=== PATIENT | male | born 1980 | race Caucasian/White ===

== ENCOUNTER 2023-09-06 10:10 | Outpatient (AMB) | payer OTHER, SELFPAY ==
[2023-09-06 12:30] VITALS: PULSE 72; TEMP 36.6; O2SAT 98; BMI 20.8
--- NOTE | 2023-09-06 12:30 | AM.OFFWIN_ITS ---
Intake Vital Signs 09/06/23 12:30 Height 5 ft 5 in Weight 125 lb BMI 20.8 Pulse 72 Pulse Source Pulse Oximeter Temp 97.9 F Temp Source Oral Pulse Oximetry (%) 98 Oxygen Delivery Method Room Air Intake Visit Reasons: [employer]-Lt ear [phone] Intake Note: Patient is here with left ear blockage, now goo is coming out of it. Patient Tobacco Use Status: Current everyday Tobacco user Allergies No Known Allergies Allergy (Verified 09/06/23 12:32) Do you need a note to return to daycare/school/sports/work: No HPI HPI Comments History of Present Illness Details This is a 43-year-old male who presents to the office today for sick visit. Patient complaining of left ear pain, left ear fullness, and left ear drainage. Patient states he went to bed last night just fine. He woke up around 5:00 a.m. this morning with fullness in his left ear any notice some water draining out of it. He reports some mild nasal congestion. He denies any fevers or chills. Review of Systems Const All systems reviewed & are unremarkable except as noted in HPI and below Reports no additional complaints Eyes Reports no additional complaints ENT Reports no additional complaints Card Reports no additional complaints Resp Reports no additional complaints GI Reports no additional complaints Reports no additional complaints Musc Reports no additional complaints Skin/Breast Reports system reviewed and no additional complaints, except as documented Neuro Reports no additional complaints Psych Reports no additional complaints Endo Reports no additional complaints [place]/Lymph Reports no additional complaints Aller/Immun Reports no additional complaints Physical Exam Vital Signs: BMI result Body Mass Index 20.8 Const Other: Vital signs reviewed. Constitutional: Non-toxic appearing. No acute distress. Well-developed and well-nourished. HEENT: Normocephalic and atraumatic. Erythema and edema of the right external auditory canal, tympanic membrane without erythema, edema, or bulging. Moist mucous membranes. No pharyngeal erythema or exudates. Skin: Warm and dry. No rashes or lesions noted. Neck: Full and painless range of motion. No cervical lymphadenopathy. Cardio: Regular rate. No lower extremity edema. No JVD. Pulmonary: No respiratory distress. No accessory muscle usage. Gastrointestinal: Soft, nontender, and nondistended in all 4 quadrants. Musculoskeletal: Normal range of motion in joints throughout the body. No deformity or other signs of injury. Neuro: Alert and oriented x4. Cranial nerves 2-12 grossly intact. No focal deficits appreciated. Psych: Normal mood and affect. Assessment & Plan Assessment & Plan (1) Acute otitis externa of left ear: Code(s): H60.502 - Unspecified acute noninfective otitis externa, left ear Qualifiers: Otitis externa type: swimmer's ear Qualified Code(s): H60.332 - Swimmer's ear, left ear Plan: This is a 43-year-old male presenting to the office complaining of left ear pain, fullness, and mild drainage. On physical examination, there is erythema and edema the left external auditory canal without cerumen impaction. The tympanic membrane is without erythema, edema, or bulging. History and physical most consistent with an acute otitis externa. Patient sent home on neomycin/polymyxin/hydrocortisone drops 4 times daily times 10 days. He was recommended to utilize decongestants to help with nasal congestion. Patient was advised to follow-up here for any persistent or worsening symptoms. Patient verbalizes understanding and he is in agreement with the plan. (2) Acute otitis externa of right ear: Code(s): H60.501 - Unspecified acute noninfective otitis externa, right ear Coding Level of Care Code New Pt Level 3 (01366) Diagnoses Acute swimmer's ear of left side H60.332 Otitis externa type: swimmer's ear Acute otitis externa of right ear H60.501
== END 2023-09-06 12:44 | disposition home or self-care (01) ==
PROVIDERS: Visit Provider Physician Assistant Medical
DX: H60.332 Swimmer's ear, left ear (principal); H60.501 Unspecified acute noninfective otitis externa, right ear
CPT/HCPCS: 99051; 99203